=== PATIENT | female | born 1940 | race Caucasian/White ===

== ENCOUNTER 2020-04-04 23:19 | Emergency (ER) | payer MEDICARE, SELFPAY ==
--- NOTE | ~2020-04-04 | XR_ITS ---
EXAMINATION: XR chest 2V EXAM DATE: 04/05/2020 00:21 INDICATION: Fell 2 days ago, left-sided neck and upper back pain. TECHNIQUE: Frontal and lateral projections of the chest obtained and reviewed. Comparison is made to prior examination from 01/10/2018. FINDINGS: Moderate chronic hyperinflation. Mild cardiomegaly. Probable small pleural effusions. No f ocal airspace disease or pneumothorax. There are no osseous abnormalities identified. IMPRESSION: Development of congestive changes. No acute airspace disease. Reviewed, dictated and finalized at location A. RESSIONAL REPRESENTATIVE
--- NOTE | ~2020-04-04 | CT_ITS ---
EXAMINATION: CT cervical spine wo con EXAM DATE: 04/05/2020 00:14 INDICATION: fall . Cervical Pain. TECHNIQUE: Spiral CT of the cervical spine was performed without contrast. Axial images were reviewe d. Coronal and sagittal reformatted images were also reviewed. The dose-length product (DLP) for thi s examination was 275.93 mGy-cm. The exposure was tailored according to patient size (auto mA exposu re control), and iterative reconstruction (ASIR) was used as additional dose reduction technique. ere is no prior study for comparison. FINDINGS: There is no evidence of acute cervical fracture. The odontoid process is intact. Pre-dens space is normal. Prevertebral soft tissue is normal. There are no soft tissue abnormalities identi fied. There is no disc space widening or traumatic vertebral body subluxation suspected. There is m oderate lower cervical disc disease. Some advanced cervical arthropathy causing significant multileve l neural foraminal stenosis. A detailed level by level evaluation of spondylosis can be added as add endum if requested. IMPRESSION: 1. No acute cervical fracture. 2. Advanced cervical arthropathy. Reviewed, dictated and finalized at location A. N MATERIAL VALUE ADDED ASSESSOR
[2020-04-04 23:19] VITALS: BP 170/104; PULSE 94; RESP 18; TEMP 37.2; O2SAT 99
[2020-04-04 23:26] VITALS: BP 170/104; O2SAT 96
[2020-04-04 23:27] VITALS: O2SAT 98
[2020-04-04 23:30] VITALS: O2SAT 98
[2020-04-04 23:45] VITALS: O2SAT 100
[2020-04-05] VITALS (8 sets, daily range): BP systolic 164–193; BP diastolic 97–128; PULSE 92; O2SAT 93–96
--- NOTE | 2020-04-05 00:44 | ED.FALL ---
HPI - Fall General Chief Complaint: Fall Stated Complaint: fall neck pain Time Seen by Provider: 04/04/20 23:50 Source: RN notes reviewed History of Present Illness HPI Narrative: Patient presents to emergency department from home for left-sided neck pain. Patient states that 2 days ago she fell asleep while sitting in a chair. She states that she was laying with her head on the armrest states at that time she slid out of the chair onto the ground hitting the left side of her neck on the chair. She states she is had pain since that time in the left posterior neck and left upper back she denies striking her head or any loss of consciousness denies chest pain shortness of breath abdominal pain numbness or tingling in the extremities or any other symptoms Related Data Home Medications Medication Instructions Recorded Confirmed acetaminophen 650 mg PO Q4H PRN 04/04/20 04/04/20 cholecalciferol (vitamin D3) 50 mcg PO DAILY 04/04/20 04/04/20 [Vitamin D3] clonidine HCl 0.1 mg PO TID 04/04/20 04/04/20 glipizide 2.5 mg PO DAILY 04/04/20 04/04/20 metformin 500 mg PO BID 04/04/20 04/04/20 multivitamin [Daily Multi-Vitamin] 1 tablet PO DAILY 04/04/20 04/04/20 omeprazole 20 mg PO DAILY 04/04/20 04/04/20 ropinirole 0.5 mg PO HS 04/04/20 04/04/20 rosuvastatin 10 mg PO DAILY 04/04/20 04/04/20 venlafaxine 150 mg PO DAILY 04/04/20 04/04/20 Allergies Allergy/AdvReac Type Severity Reaction Status Date / Time codeine Allergy Unknown Verified 01/10/18 13:59 Review of Systems Review of Systems: Narrative: Gen.: Denies fevers or chills ENT: Denies congestion Respiratory: Denies shortness of breath or cough CV: Denies chest pain or palpitations GI: Denies abdominal pain nausea, emesis or diarrhea Musculoskeletal: HPI Neuro: Denies numbness, tingling, weakness or focal weakness Skin: Denies rash Except as documented, all other systems reviewed and negative PMFSH Past Medical History Medical History (Updated 04/05/20 @ 02:32 by Biju Howard DO) Diabetes mellitus Social History Social History (Updated 04/05/20 @ 02:29 by Biju Howard DO) Smoking status: Never smoker Exam Narrative: Exam Narrative: APPEARANCE: No acute distress, nontoxic, resting in bed EYES: EOMI HEENT: Normocephalic, atraumatic, OMM nares patent Neck: Supple no midline tenderness palpation tender palpation over left paravertebral muscles see 5 through 7 pain with rotation of the neck to the left no pain with rotation of neck to the right RESPIRATORY: No respiratory distress Clear to auscultation bilaterally with no rhonchi wheezing or rales. CARDIOVASCULAR: Regular rate and rhythm without murmurs rubs or gallops. ABDOMINAL: Soft, nontender, nondistended, no rebound or guarding MUSCULOSKELETAl: Moves all extremities. No clubbing, cyanosis or edema. Back: No midline thoracic or lumbar tenderness palpation, tender palpation of the left paravertebral muscles T1-3 in region of left trapezius muscle NEURO: Awake and alert. Following commands, speech normal, no focal deficits SKIN:: Warm, dry. No rashes lesions or abrasions PSYCHIATRIC: Normal affect/mood, Course Course Emergency Course: Discussed with patient her allergies to codeine she states it causes her nausea and vomiting denies any true allergy Patient states pain is improved with tramadol Discussed with patient results of workup and diagnosis. Discussed need for follow-up with primary care, proper use of medication, and reasons to return to the emergency department. Patient understands and agrees to current treatment plan Vital Signs Vital signs: Vital Signs Temperature 98.9 F 04/04/20 23:19 Pulse Rate 94 04/04/20 23:19 Respiratory Rate 18 04/04/20 23:19 Blood Pressure 170/104 H 04/04/20 23:19 Pulse Oximetry 99 04/04/20 23:19 Temperature 98.9 F 04/04/20 23:19 Pulse Rate 94 04/04/20 23:19 Respiratory Rate 18 04/04/20 23:19 Blood Pressure 187/97 H 04/05/20 00:01 P
[2020-04-05] MEDS: traMADol HCL (*CRX) 50 MG TABLET PO (01:24)
--- NOTE | 2020-04-05 03:22 | PC.NURSE ---
Called [facility] to request transport. ETA 20 minutes
--- NOTE | 2020-04-05 04:14 | PC.NURSE ---
[facility] called and updated ETA to 0500 due to an emergency call.
== END 2020-04-05 04:49 ==
PROVIDERS: Emergency Provider Emergency Medicine; PCP Family Medicine
DX: S16.1XXA Strain of muscle, fascia and tendon at neck level, initial encounter (principal); E11.9 Type 2 diabetes mellitus without complications; Z79.84 Long term (current) use of oral hypoglycemic drugs; W07.XXXA Fall from chair, initial encounter
CPT/HCPCS: 71046; 72125; 99284; A9270

== ENCOUNTER 2020-04-06 12:21 | Outpatient (NON) | payer MEDICARE, SELFPAY ==
[2020-04-06 13:39] LABS: Add Urine Microscopic? YES; Appearance Urine Clear (Clear); Bilirubin Urine Negative (Negative); Blood Urine Negative (Negative); Color Urine Yellow (Yellow); Glucose Urine UA 1+ mg/dL (Negative); Ketones Urine 1+ mg/dL (Negative); Leukocyte Esterase Ur Trace LEU/UL (NEGATIVE); Mucus Urine Rare /lpf; Nitrate Urine Negative (Negative); Protein Urine 3+ mg/dL (Negative); Specific Grav Ur 1.026 (1.001-1.035); WBC Urine 21-30 /hpf (0-3)
== END 2020-04-06 12:22 ==
PROVIDERS: PCP Family Medicine; Visit Provider Family Medicine
DX: R41.0 Disorientation, unspecified (principal)
CPT/HCPCS: 81001; 87086; 87088

== ENCOUNTER 2020-05-12 15:28 | Outpatient (CLI) | payer MEDICARE, SELFPAY ==
--- NOTE | ~2020-05-12 | XR_ITS ---
XR chest 2V DATE: 05/12/2020 15:46 INDICATION: Cough. Medial chest pain. Frequent falls. History of cardiac disease. TECHNIQUE: PA and lateral views COMPARISON: 04/05/2020 AP and lateral chest FINDINGS: Mild cardiomegaly. There is aortic calcification and unfolding. No hilar or mediastinal enl argement. Moderate bilateral hyperinflation. Mild bibasilar infiltrate and/or atelectasis or scarring. The lung s otherwise appear clear. No pleural effusion or pulmonary vascular congestion or pneumothorax. Moderate osteopenia. Mild levoscoliosis of the thoracic spine. Degenerative change of the thoracic an d lumbar spine. No suspicious osteolytic or osteoblastic lesion is noted. Status post cholecystectomy. IMPRESSION: Mild bibasilar infiltrate, atelectasis and/or fibrotic change Mild cardiomegaly Aortic atherosclerosis Reviewed, dictated and finalized at location A. RECEIVER
== END 2020-05-12 15:29 | disposition home or self-care (01) ==
LOC: ANHIMG 15:30
PROVIDERS: PCP Family Medicine; Visit Provider Physician Assistant
DX: R05 Cough (principal); R06.02 Shortness of breath; R91.8 Other nonspecific abnormal finding of lung field; I51.7 Cardiomegaly; I70.0 Atherosclerosis of aorta
CPT/HCPCS: 71046

== ENCOUNTER 2020-10-22 13:19 | Emergency (ER) | payer MEDICARE, MEDICAID, SELFPAY ==
[2020-10-22] VITALS (7 sets, daily range): BP systolic 116–168; BP diastolic 56–88; PULSE 67–78; RESP 15–18; TEMP 36.6–37.1; O2SAT 96–98
--- NOTE | 2020-10-22 14:28 | ED.PSYCH ---
HPI - Psych General Chief Complaint: Psychiatric Symptoms <Joseph Hairston MD - Last Filed: 10/22/20 16:52> Stated Complaint: PSYCH EVAL <Joseph Hairston MD - Last Filed: 10/22/20 16:52> Time Seen by Provider: 10/22/20 13:22 <Joseph Hairston MD - Last Filed: 10/22/20 16:52> History of Present Illness HPI Narrative: Patient is an 80-year-old female who presents to the ER with concerns about psychiatric illness. Patient does not have these concerns it is her us[facility] home that has these concerns. Apparently over the last 24 hours patient has been talking about a person that lives downstairs from her who can watch her with cameras. She reports that she has a friend named Petros that she often talks to and he is told her about some sexual problems that he has. She reports that she is not in a relationship with them. She reports she feels safe at home but feels like her privacy is being invaded by the fact that he has cameras it is able to watch her shower. She is oriented x4. <Joseph Hairston MD - Last Filed: 10/22/20 16:52> Related Data Home Medications: Home Medications Medication Instructions Recorded Confirmed acetaminophen 650 mg PO Q4H PRN 04/04/20 05/18/20 cholecalciferol (vitamin D3) 50 mcg PO DAILY 04/04/20 05/18/20 [Vitamin D3] clonidine HCl 0.1 mg PO TID 04/04/20 05/18/20 glipizide 2.5 mg PO DAILY 04/04/20 05/18/20 metformin 500 mg PO BID 04/04/20 05/18/20 multivitamin [Daily Multi-Vitamin] 1 tablet PO DAILY 04/04/20 05/18/20 omeprazole 20 mg PO DAILY 04/04/20 05/18/20 ropinirole 0.5 mg PO HS 04/04/20 05/18/20 rosuvastatin 10 mg PO DAILY 04/04/20 05/18/20 venlafaxine 150 mg PO DAILY 04/04/20 05/18/20 <Joseph Hairston MD - Last Filed: 10/22/20 16:52> Allergies/Adverse Reactions: Allergies Allergy/AdvReac Type Severity Reaction Status Date / Time codeine Allergy Unknown unknown Verified 10/22/20 13:44 lisinopril Allergy Unknown unknown Verified 10/22/20 13:44 losartan Allergy Unknown unknown Verified 10/22/20 13:44 <Joseph Hairston MD - Last Filed: 10/22/20 16:52> Review of Systems Review of Systems: All systems reviewed & are unremarkable except as noted in HPI and below <Joseph Hairston MD - Last Filed: 10/22/20 16:52> Constitutional: Constitutional: Denies chills, Denies fever(s) and Denies weakness <Joseph Hairston MD - Last Filed: 10/22/20 16:52> ENT: Denies nasal congestion and Denies sore throat <Joseph Hairston MD - Last Filed: 10/22/20 16:52> Cardiovascular: Cardiovascular: Denies chest pain, Denies rapid heart rate and Denies radiating jaw, neck or arm pain <Joseph Hairston MD - Last Filed: 10/22/20 16:52> Respiratory: Respiratory: Denies cough and Denies dyspnea <Joseph Hairston MD - Last Filed: 10/22/20 16:52> Gastrointestinal: Gastrointestinal: Denies abdominal pain, Denies nausea and Denies vomiting <Joseph Hairston MD - Last Filed: 10/22/20 16:52> Psychiatric: Psychiatric: Denies anxiety, Denies depression, Denies homicidal ideation and Denies suicidal ideation <Joseph Hairston MD - Last Filed: 10/22/20 16:52> [facility] Past Medical History Medical History: Medical History (Updated 10/22/20 @ 20:28 by Samson Mancia MD) Bipolar disorder Cognitive impairment Dementia Diabetes mellitus DOUG (generalized anxiety disorder) HTN (hypertension) <Joseph Hairston MD - Last Filed: 10/22/20 16:52> Family History Family History: Family History Other Family history of gallbladder disease <Joseph Hairston MD - Last Filed: 10/22/20 16:52> Social History Social History: Social History (Updated 05/25/20 @ 13:11 by Dianna Licea CMA) Second hand tobacco smoke exposure: No Alcohol intake: never Substance use: never Substance use type: does not use Additional living arrangements comments: Pt lives at [facility]
[2020-10-22 14:45] LABS: Basophils Percent Auto 0.4 % (0.2-1.2); Eosinophils Absolute Auto 0.2 K/mm3 (0-0.3); Eosinophils Percent Auto 1.9 % (0-4.4); Hematocrit 35.8 % (37.0-47.0); Hemoglobin 11.3 g/dL (12.0-15.0); Immature Granulocyte Absolute 0.02 K/mm3 (0.00-0.031); Immature Granulocyte Percent A 0.2 % (0-0.5); Lymphocytes Percent Auto 31.6 % (18.3-44.2); Mean Corpuscular HGB Conc 31.6 g/dl (32-36); Mean Corpuscular Hemoglobin 27.2 pg (26-34); Mean Corpuscular Volume 86.1 fl (80-100); Monocytes Absolute Auto 0.8 K/mm3 (0.1-0.6); Monocytes Percent Auto 9.1 % (2.6-8.5); Neutrophils Absolute Auto 4.7 K/mm3 (1.3-6.7); Neutrophils Percent Auto 56.8 % (45.5-73.1); Platelet Count Result 256 k/mm3 (150-375); Red Blood Count 4.16 M/mm3 (4.2-5.4); Red Cell Distribution Width 16.3 % (11.5-14.5); White Blood Count 8.2 K/mm3 (4.5-10.0)
[2020-10-22 14:56] LABS: Alanine Aminotransferase 14 U/L (4-35); Albumin Level 4.4 g/dL (3.5-5.1); Alkaline Phosphatase 90 U/L (38-126); Anion Gap 10 mmol/L (8-16); Aspartate Amino Transferase 31 U/L (14-36); Bilirubin,Total 0.3 mg/dL (0.2-1.3); Blood Urea Nitrogen 29 mg/dL (7-17); Calcium 10.7 mg/dL (8.4-10.2); Carbon Dioxide 25 mmol/L (22-30); Chloride 105 mmol/L (98-107); Estimated Glomerular Filt Rate 25; Glucose 56 mg/dL (65-105); Potassium 4.3 mmol/L (3.4-5.0); Sodium 140 mmol/L (137-145)
[2020-10-22 15:07] LABS: Add Urine Microscopic? YES; Appearance Urine Cloudy (Clear); Bilirubin Urine Negative (Negative); Color Urine Yellow (Yellow); Glucose Urine UA Negative (Negative); Ketones Urine Trace mg/dL (Negative); Leukocyte Esterase Ur Trace LEU/UL (Negative); Mucus Urine Rare /lpf; Nitrate Urine Negative (Negative); Protein Urine 3+ mg/dL (Negative); RBC Urine 0-2 /hpf (0-2); Specific Grav Ur 1.026 (1.001-1.035); Squamous Epithelial Cell Urine Occasional /hpf (Few); Transitional Epi Cells Urine Rare /hpf (None Seen); Urobilinogen Urine Negative mg/dL (<2.0)
[2020-10-22 15:08] LABS: Blood Urine Negative (Negative)
[2020-10-22] MEDS: DEXTROSE 50% 25 GM/50 ML SYRINGE IV PUSH (15:08)
[2020-10-22 15:24] LABS: Ethanol < 10 mg/dL (<10)
[2020-10-22 15:42] LABS: Amphetamine Screen Urine Negative (Negative); Barbiturate Screen Urine Negative (Negative); Benzodiazepines Screen Urine Negative (Negative); Cannabinoid Screen Urine Negative (Negative); Cocaine Screen Urine Negative (Negative); Methadone Screen Urine Negative (Negative); Opiate Screen Urine Negative (Negative); Phencyclidine Screen Urine Negative (Negative)
[2020-10-22 15:56] LABS: Glucose Point of Care 261 mg/dl (65-105)
--- NOTE | 2020-10-22 19:10 | PCCCNOTE ---
Call to ED: Crisis employee felt that pt is not confused or demented. She believes that there maybe suspicious activity involving a maintanence worker at [facility]. I was asked if appropriate to get PD involved. I said yes it is appropriate because the PD could do there own investigation. I also said that the pt should not go back there tonight and to see if other family members could temporarily house the pt. I did not interview the pt.
--- NOTE | 2020-10-22 19:21 | PC.NURSE ---
PD present at bedside interviewing pt.
--- NOTE | 2020-10-22 20:44 | PC.NURSE ---
Addendum entered by Wanda Bustos 10/23/20 00:27: [facility] CALLED WITH UPDATED TRANSPORT TIME OF 0130. Original Note: CALLED FOR EMS TRANSPORT BACK TO [facility] ACCEPTED WITH ETA OF 0000.
--- NOTE | 2020-10-22 21:18 | PC.NURSE ---
Pt provided lunch box per ok from EDMD. Pt assisted to bedside commode and is now back in bed resting. Pt aware of poc and EMS rock picker time. All questions and concerns addressed. Pt advised to press call button for assistance. Pt alert and oriented x4 with stable vitals and is in no obvious distress at this time.
[2020-10-23 00:23] VITALS: BP 157/89; PULSE 68
[2020-10-23 00:24] VITALS: BP 163/87; PULSE 73
[2020-10-23 00:25] VITALS: BP 159/78; PULSE 81
--- NOTE | 2020-10-23 00:39 | PC.NURSE ---
EMS now to arrive at 0130.
--- NOTE | 2020-10-23 01:02 | PC.NURSE ---
Charge nurse spoke with Marina at [facility] about patient returning to facility. Marina did state The patients claims have been escalated to our TAG MAKER and DON regarding the header operator Petros. Currently the claims are unfounded. Petros only works during day hours and is gone by 4pm. Petros also is only ever present at the night time if he is called in for an emergency. We have no concerns with her return tonight.
== END 2020-10-23 01:29 ==
PROVIDERS: Emergency Medicine; Emergency Provider Family Medicine; PCP Family Medicine
DX: F22 Delusional disorders (principal); F03.90 Unspecified dementia, unspecified severity, without behavioral disturbance, psychotic disturbance, mood disturbance, and anxiety; E11.9 Type 2 diabetes mellitus without complications; I10 Essential (primary) hypertension; F31.9 Bipolar disorder, unspecified; F41.1 Generalized anxiety disorder; Z79.84 Long term (current) use of oral hypoglycemic drugs; Z79.899 Other long term (current) drug therapy
CPT/HCPCS: 36415; 80053; 80307; 81001; 82948; 84443; 85025; 87086; 87088; 96374; 99284